=== PATIENT | female | born 1985 | race Caucasian/White ===

== ENCOUNTER → 2018-11-16 14:27 | Outpatient (CLI) | payer BC, SELFPAY ==
[2018-11-22 14:15] LABS: HPV Reflexed? NOT INDICATED
== END ==
PROVIDERS: Visit Provider Obstetrics & Gynecology
DX: Z12.4 Encounter for screening for malignant neoplasm of cervix (principal)
CPT/HCPCS: 88175; G0145

== ENCOUNTER → 2018-12-25 08:21 | Outpatient (CLI) | payer BC, SELFPAY ==
--- NOTE | 2018-12-25 08:26 | CT_ITS ---
STUDY: CT ABDOMEN AND PELVIS WITH CONTRAST REASON FOR EXAM: Female, 33 years old. Diffuse pain. Hematuria. RADIATION DOSAGE (If Supplied By Facility): CTDIvol = ( 11.09 ) mGy, DLP = ( 781.66 ) mGycm TECHNIQUE: Transaxial images were obtained from the dome of the diaphragm to the symphysis pubis without oral contrast. 100CC ml of Isovue 300 contrast was administered. Sagittal and coronal images were reconstructed. Individualized dose optimization techniques were used for this CT. COMPARISON: None. FINDINGS: The visualized lung bases are unremarkable. The visualized portions of the heart are within normal limits. Normal liver. Normal gallbladder and extrahepatic biliary system. Normal spleen. Normal pancreas. Normal bilateral adrenal glands. Normal right kidney. Normal left kidney. Evaluation of the GI tract is limited by absence of oral contrast. Cannot exclude stomach wall thickening. No dilated loops of bowel or evidence for obstruction. Cannot exclude segmental thickening of the florentino of the small or large bowel. Cannot exclude enteritis or colitis. Appendix within normal limits. Normal abdominal aorta. Normal inferior vena cava. Normal retroperitoneum. Normal urinary bladder. Normal visualized uterus. There is a 3.3 cm right ovarian cyst. Normal abdominal wall. Normal osseous structures. CT/Abdomen/Pelvis WITH Contrast IMPRESSION: No significant or acute abnormality. 3.3 cm right ovarian cyst. Electronically Signed: Derik Meneses MD at 19:59 EST , Service support ,
== END ==
PROVIDERS: Family Provider Nurse Practitioner Family; PCP Nurse Practitioner Family; Referring Provider Nurse Practitioner Family; Visit Provider Nurse Practitioner Family
DX: R10.31 Right lower quadrant pain (principal); R31.9 Hematuria, unspecified
CPT/HCPCS: 74177; Q9967

== ENCOUNTER → 2018-12-31 08:59 | Outpatient (CLI) | payer BC, SELFPAY ==
[2013-09-30 20:34] VITALS: BMI 29.2
--- NOTE | 2018-12-31 09:07 | RAD_ITS ---
STUDY: X-RAY CHEST REASON FOR EXAM: Female, 33 years old. Intermittent left-sided chest pain. TECHNIQUE: PA and lateral views of the chest. COMPARISON: None. FINDINGS: The lungs are clear and expanded. Scattered calcified granulomas. There is no demonstrated pleural abnormality. Normal size heart. Normal mediastinum and jewel. Normal visualized pulmonary arteries. Normal visualized aortic arch and descending thoracic aorta. Normal visualized thoracic spine. Normal visualized ribs, clavicles, and shoulders. There is no demonstrated abnormality of the visualized soft tissue structures of the upper abdomen. RAD/Chest PA and Lateral IMPRESSION: Normal x-ray examination of the chest. Electronically Signed: Isaac Gautam MD at 14:22 EST , Service support ,
== END ==
PROVIDERS: Family Provider Nurse Practitioner Family; PCP Nurse Practitioner Family; Referring Provider Nurse Practitioner Family; Visit Provider Nurse Practitioner Family
DX: R10.31 Right lower quadrant pain (principal); R31.9 Hematuria, unspecified
CPT/HCPCS: 71046

== ENCOUNTER → 2020-12-31 14:05 | Outpatient (CLI) | payer OTHER, SELFPAY ==
--- NOTE | 2020-12-31 14:10 | BI_ITS ---
MAMMOGRAPHY - BILATERAL DIAGNOSTIC REASON FOR EXAM: Female, 35 years old. Left breast pain. PERTINENT HISTORY: Non-contributory. TECHNIQUE: Digital bilateral breast ubaldo (3D mammographic acquisition) in the CC and MLO projections. 2-D mediolateral oblique (MLO) and craniocaudad (CC) views of both breasts were obtained. CAD: Full Field Digital Mammography with Computer Added Detection was performed. COMPARISON: None. Baseline examination. FINDINGS: Breast Composition: The breasts are extremely dense, which lowers the sensitivity of mammography. There are no dominant masses or suspicious calcifications. No other significant abnormalities are identified. BI/DIAG MAMM W/CAD, BILAT IMPRESSION: Negative diagnostic mammogram. With the patient''s history of left breast pain, correlation with ultrasound is recommended. ASSESSMENT CATEGORY: BIRADS Category 0: Incomplete. Need additional imaging evaluation. A letter regarding these results will be sent to the patient by the facility within 30 days. Approximately 10% of breast cancers are not detected by mammography. A normal mammogram should not delay biopsy of a clinically suspicious abnormality. Electronically Signed: Isaac Gautam MD at 15:26 EST , Service support ,
--- NOTE | 2020-12-31 14:12 | US_ITS ---
STUDY: ULTRASOUND BREAST - LEFT REASON FOR EXAM: Female, 35 years old. Pain in the left breast. TECHNIQUE: Axial and longitudinal images of the LEFT breast were performed with a high resolution ultrasound transducer. # OF IMAGES: 28 COMPARISON: Comparison is made with prior mammogram done earlier today. FINDINGS: LEFT Breast: There is a 6 mm x 8 mm x 5 mm complex solid slightly irregular nodule at the 3 o''clock position of the breast at 2 cm from the nipple. This corresponds to the area of pain. A biopsy is recommended. US/Breast Limited Unilateral IMPRESSION: 6 mm x 8 mm x 5 mm complex solid slightly irregular nodule at the 3 o''clock position of the breast at 2 cm from the nipple. A biopsy is recommended. ASSESSMENT CATEGORY: BIRADS Category 4: Suspicious - Biopsy Should Be Considered. A letter regarding these results will be sent to the patient by the facility within 30 days. Electronically Signed: Isaac Gautam MD at 15:30 EST , Service support ,
== END ==
PROVIDERS: PCP Nurse Practitioner Family; Referring Provider Student in an Organized Health Care Education/Training Program; Visit Provider Student in an Organized Health Care Education/Training Program
DX: N64.4 Mastodynia (principal)
CPT/HCPCS: 76642; 77066

== ENCOUNTER 2021-01-21 07:40 | Day surgery (SDC) | payer OTHER, SELFPAY ==
[2021-01-05 14:12] VITALS: BMI 26.6
[2021-01-21] VITALS (7 sets, daily range): BP systolic 104–128; BP diastolic 69–75; PULSE 73–96; RESP 16; TEMP 36.2–37.1; O2SAT 98–100; BMI 26.6
--- NOTE | 2021-01-21 06:19 | HP_ITS ---
Intake Vital Signs 01/05/21 Height 5 ft 5 in 01/05/21 Weight: 160 lb 01/05/21 BMI 26.6 01/05/21 BP 141/82 H 01/05/21 Blood Pressure Location Rt brachial 01/05/21 Position Sitting 01/05/21 Respiration 16 01/05/21 Pulse 89 01/05/21 Pulse Source Monitor 01/05/21 Temp 98.3 F 01/05/21 Temp Source Temporal 01/05/21 Pulse Oximetry (%) 98 01/05/21 Oxygen Delivery Method room air Intake Visit Reasons: BIRADS 4 LEFT BREAST Guide [place] Required: No Is patient in pain?: Yes (left breast tenderness) Allergies No Known Allergies Allergy (Verified 01/05/21 14:13) Medications cetirizine 10 mg tablet 10 mg PO DAILY PRN 01/05/21 [History Confirmed 01/05/21] escitalopram oxalate 10 mg tablet 10 mg PO DAILY tab 01/05/21 [History Confirmed 01/05/21] PFSH Medical History Breast pain, left (Acute) Seasonal allergies (Acute) Abnormal ultrasound of breast (Acute) Abnormal mammogram of left breast (Acute) Surgical History No significant past surgical history (Acute) Family History Father Heart disease Hypertension Diabetes Social History (Updated 01/05/21 @ 14:[address] Isidoro Rome MD) Smoking Status: Never smoker second hand exposure: No alcohol intake: current alcohol intake frequency: holidays/special occasions only substance use type: does not use caffeine: Yes what type of physical activity do you participate in: none frequency: does not exercise HPI HPI HPI: SUSANA UGARTE, is a 35 F who presents to the office today for HPI HPI Surgical H&P: Yes HPI: SUSANA UGARTE, is a 35 F who presents to the office today for Left breast mass. Patient notes that for the last several months she is experienced left wrist pain in the lateral aspect of her breast. The patient notes that it does coincide with her periods. She reports that it feels tender in that area especially to palpation. Has been worsening over the last few months. She reports no nipple discharge. She has no family history of breast cancer. ROS General General: No weight change, appetite, fatigue, colon cancer, breast cancer or weakness HEENT HEENT: No difficulty swallowing, eye injury, eye surgery, swollen glands or hoarseness Endo Endocrine: No thyroid disease, diabetes mellitus, thyroid cancer, Hair loss, heat intolerance or cold intolerance Breast Breast: Yes left breast lump and breast pain Musc Musculoskeletal: Yes back problems; no arthritis, rheumatoid arthritis, gout or joint pain Cardio Cardiovascular: No murmur, pacemaker, heart disease, atrial fibrillation, high blood pressure, heart attack, heart stent, palpitations, shortness of breat with exertion or chest pain Psych Psychiatric: Yes anxiety; no depression or hearing voices Resp Respiratory: No shortness of breath, No sleep apnea, No cough, No COPD, No asthma, No emphysema, No wheezing Gastro Gastrointestinal: No abdominal pain, No nausea or vomiting, No diarrhea, No constipation, No blood in stool, No acid reflux, No hemorrhoids, No ulcers, No gallbladder problem, No black,tarry stools Myles Hematologic: No blood thinners, No blood disorders, No bleeding, No anemia, No blood clots Neuro Neurologic: No system reviewed and no additional complaints, except as docu, No as per HPI, No abnormal walking, No abnormal hearing, No abnormal movements, No abnormal speech, No behavioral changes, No burning sensations, No confusion, No seizure-like activity, No unsteadiness, No dizziness, No localized weakness, No frequent falls, No headache(s), No lack of coordination, No loss of vision, No memory loss, No numbness, No other visual disturbances, No radiating pain, No restless legs, No sensory deficit, No fainting, No tingling, No tremor(s), No weakness, No other Exam Const General: cooperative Orientation: alert, oriented x3 Chest Breast Palpation: Yes breast mass lrb: Left Resp Effort & Inspection: normal respiratory effort Auscultation: clear to auscultation bilaterally Cardio Rate: regular rate Rhythm: regular rhythm Heart Sounds: no murmurs GI Inspection: non-distended Palpation: soft, nontender Assessment & Plan Problems 1. Breast pain, left N64.4 2. Left breast mass N63.20 Plan The patient has a left breast mass noted on ultrasound. The breast mass is causing her pain. I believe this is likely a fibroadenoma and I did discuss needle biopsy versus excisional biopsy. He was given a BI-RADS score of 4. The patient has not high risk for breast cancer and her pain is cyclical. She says that it is increasing in pain and she would like this removed either way as it is causing her discomfort. I discussed this with her and I discussed excisional biopsy of this mass. I discussed the risks including but not limited to bleeding and infection. Patient would like it excised if possible and I believe this is very feasible as it is causing her discomfort and even if it is a fibroadenoma she would like it excised due to the discomfort. I will schedule her for ultrasound-guided wire localization with excisional biopsy. Isidoro Rome MD Pager: [facility] [address] [place] [address], [address] [place] [address] Office: Coding Level of Care Code Off vis,new,level 3 Diagnoses Breast pain, left N64.4 Left breast mass N63.20 I have seen and examined patient. no changes since prior exam.
[2021-01-21 08:05] LABS: Internal QC Validated? YES +Cl - CLEAR BKGD; Pregnancy, Urine Negative Negative
[2021-01-21] MEDS: Lactated Ringers 1,000 ML 100 ML IV ×2 (08:11→09:34)
[2021-01-21] MEDS: Cefazolin 2 GM in 0.9% Normal Saline 100 ML IV (08:46)
[2021-01-21] MEDS: Bupivacaine Mpf 0.5% 30 ML VIAL (09:15)
--- NOTE | 2021-01-21 09:20 | BR_PTH ---
PATIENT: SUSANA UGARTE LOC: [facility] [place] U#:[id number] AGE/SX: 35/F ROOM: RE01/21/[address]: Dr. 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 Negative for malignancy. See comment. TRINITY:miri 01/25/2021 COMMENT The lesion is completely excised. Correlation with clinical, radiologic findings and appropriate follow up are necessary. MICROSCOPIC DESCRIPTION Slides are reviewed. GROSS DESCRIPTION Received in fixative is one container labeled with the patient's name and designated left breast biopsy. The specimen consists of a piece of fibroadipose tissue with needle localization measuring 3.5 x 2.5 x 1.5 cm. The specimen is not oriented. The specimen is inked, serially sectioned and does not reveal any mass lesion. The entire specimen is submitted in five cassettes from one end to another. / TRINITY:miri 01/22/21 TC:5 CPT: 68608
--- NOTE | 2021-01-21 09:29 | PCM.OPRPT ---
Problem List (1) Left breast mass Status: Resolved Report of Operation Date of Procedure: 01/21/21 Pre-Operative Diagnosis: Mass of the left breast Post-Operative Diagnosis: Same Surgery/Procedure Performed:: 1. Ultrasound-guided wire localization of left breast mass. 2. Left breast excisional biopsy Specimen's removed: Left breast mass Description of Procedure: Patient was brought back to the operating room and general anesthesia was induced. The left breast was prepped and draped in usual sterile fashion. Ultrasound was used to localize the mass and an Amplatz wire was placed into the breast mass under direct ultrasound guidance. Next the breast was reprepped and draped and an incision was marked over the guidewire. Local anesthetic was injected into the proposed incision and the incision was made with a scalpel. It was deepened to the subcutaneous tissue and flaps were raised. The mass was grasped with Allis forceps and removed using cautery dissection. The wire was completely removed and it was intact. Mass was sent for pathology. Electrocautery was used to gain hemostasis and the cavity was irrigated and suctioned dry. The incision was closed with interrupted 3-0 Vicryl suture as well as a running 4-0 Monocryl suture. Glue was applied. Patient tolerated the procedure well was brought to PACU in stable condition. - Admit VTE Documentation VTE Mechan Device Prophylaxis: SCD's
--- NOTE | 2021-01-21 09:35 | PCM.DC.BS ---
Discharge Diet: No Restrictions Discharge Activity: May Not Drive - for 2-3 days or while taking narcotic pain meds. May shower in (days): 1 Lifting Restrictions: 10 pounds for 1 week. Call your doctor if your incision/area has: Continuous Slow Oozing, Sudden Increased Bleeding, Increased Pain/ Swelling, Increased Redness, Foul Smelling Discharge Call your doctor if you observe: Fever of 101 or Higher Suture Line Care: Avoid Pulling/Pushing, Avoid Pinching/Bending Additional Dressing/Incision Instructions:: Remove bulky dressing tomorrow. May leave any opsite dressing for 3-4 days. Keep dressing in place until your follow-up appointment. Allergies/Adverse Reactions: Allergies No Known Allergies Allergy (Verified 01/21/21 07:45) Medications to take at Discharge cetirizine 10 mg tablet 10 mg PO DAILY PRN 01/05/21 escitalopram oxalate 10 mg tablet 10 mg PO DAILY tab 01/05/21 Oxycodone HCl/Acetaminophen [Percocet 5-325 mg Tablet] 1 tab PO Q6H PRN PRN 3 Days #15 tablet 01/21/21 The following prescriptions were given: Oxycodone HCl/Acetaminophen [Percocet 5-325 mg Tablet] 1 tab PO Q6H PRN PRN 3 Days #15 tablet PRN Reason: Pain Score 4-10/10 Transmission Status: Sent to [facility] Primary Care Physician: Cathy Antonio NP, [employer] [Primary Care Provider] - Please Follow Up With: Isidoro Rome MD When: Please call to schedule 2 week follow up appointment. [phone]
== END 2021-01-21 11:47 | disposition home or self-care (01) ==
LOC: SDC 07:41 → AC 07:41
PROVIDERS: Anesthesiology; PCP Nurse Practitioner Family; Referring Provider Surgery; Visit Provider Surgery
PROC: (CPT 19125; principal; 2021-01-21 09:05)
DX: N63.20 Unspecified lump in the left breast, unspecified quadrant (principal); N64.4 Mastodynia
CPT/HCPCS: 19125; 19285; 81025; 87426; 88305; C9803; J2405

== ENCOUNTER → 2023-06-02 | Outpatient (CLI) | payer OTHER, SELFPAY ==
--- NOTE | 2023-06-02 09:10 | BI_ITS ---
MAMMOGRAPHY - BILATERAL DIAGNOSTIC REASON FOR EXAM: Female, 37 years old. Pain in the inner lower quadrant of the left breast. PERTINENT HISTORY: Prior left excisional breast biopsy. TECHNIQUE: Digital bilateral breast ubaldo (3D mammographic acquisition) in the CC and MLO projections. 2-D mediolateral oblique (MLO) and craniocaudad (CC) views of both breasts were obtained. CAD: Full Field Digital Mammography with Computer Added Detection was performed. COMPARISON: Comparison is made with prior study dated December 31, 2020. FINDINGS: Breast Composition: The breasts are extremely dense, which lowers the sensitivity of mammography. There are no dominant masses or suspicious calcifications. No other significant abnormalities are identified. There has been no significant change since the prior study. BI/DIAG MAMM W/CAD, BILAT IMPRESSION: Stable bilateral diagnostic mammogram. With the patient''s history of pain in the inner lower quadrant of the left breast, correlation with ultrasound is recommended. ASSESSMENT CATEGORY: BIRADS Category 0: Incomplete. Need additional imaging evaluation. A letter regarding these results will be sent to the patient by the facility within 30 days. Approximately 10% of breast cancers are not detected by mammography. A normal mammogram should not delay biopsy of a clinically suspicious abnormality. Electronically Signed: Isaac Gautam MD at 11:03 EDT ,
--- NOTE | 2023-06-02 09:10 | US_ITS ---
STUDY: ULTRASOUND BREAST - LEFT REASON FOR EXAM: Female, 37 years old. Pain in the left breast. TECHNIQUE: Axial and longitudinal images of the LEFT breast were performed with a high resolution ultrasound transducer. # OF IMAGES: 20 COMPARISON: Comparison made with prior mammogram done earlier in the day as well as prior sonogram of the left breast dated December 31, 2020. FINDINGS: LEFT Breast: The inferior half of the left breast was examined with ultrasound. No sonographic abnormality is seen. US/Breast Limited Unilateral IMPRESSION: No sonographic abnormality is seen. ASSESSMENT CATEGORY: BIRADS Category 1: Negative. A letter regarding these results will be sent to the patient by the facility within 30 days. Electronically Signed: Isaac Gautam MD at 11:04 EDT ,
== END | disposition home or self-care (01) ==
PROVIDERS: PCP Nurse Practitioner Family; Referring Provider Student in an Organized Health Care Education/Training Program; Visit Provider Student in an Organized Health Care Education/Training Program
DX: D24.2 Benign neoplasm of left breast (principal)
CPT/HCPCS: 76642; 77062; 77066; G0279